=== PATIENT | female | born 1980 | race Caucasian/White ===

== ENCOUNTER 2017-03-23 20:45 | Emergency (ER) | payer MEDICAID, OTHER ==
[~2017-03-23] VITALS: Ht 157.5 cm; Wt 54.4 kg
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
--- NOTE | 2017-03-23 21:23 | NUR ---
aram hooker at bedside for eval.
[2017-03-23 21:29] LABS: APPEARANCE,URINE Clear (CLEAR); BILIRUBIN,URINE Negative (NEGATIVE); BLOOD, URINE Negative Ery/uL (NEGATIVE); COLOR,URINE Yellow (YELLOW); KETONES,URINE Trace (NEGATIVE); LEUKOCYTE ESTERASE ,URINE Negative (NEGATIVE); NITRITE, URINE Negative (NEGATIVE); PH,URINE 5.5 (5.0-8.0); PROTEIN,URINE Negative (NEGATIVE); UGLUCOSE Negative (NEGATIVE); UROBILINOGEN,URINE 0.2 EU/dL (0.2)
[2017-03-23] MEDS ORDERED: IV NS 0.9% 1,000 ML BAG IV ONE (21:30)
--- NOTE | 2017-03-23 21:30 | NUR ---
iv line started blood drawn and sent to lab.
[2017-03-23] MEDS ORDERED: IV SET PRIMARY 1 EA INFUS.SET MC ONE (21:34)
[2017-03-23 21:35] LABS: BASOPHILS # (AUTO) 0.1 /CMM (0.0-0.2); BASOPHILS % (AUTO) 1.6 % (0.0-2.0); EOSINOPHILS # (AUTO) 0.1 /CMM (0.0-0.7); EOSINOPHILS % (AUTO) 1.3 % (0.0-6.0); HEMATOCRIT 38 % (33-45); HEMOGLOBIN 12.7 g/dL (11.5-14.8); LYMPHOCYTES % (AUTO) 29.6 % (20.0-44.0); MEAN CORPUSCULAR HEMOGLOBIN 34 PG (26.0-33.0); MEAN CORPUSCULAR HGB CONC 34 g/dl (31.0-36.0); MEAN CORPUSCULAR VOLUME 101 fL (82-100); MONOCYTES # (AUTO) 0.6 /CMM (0.1-1.30); MONOCYTES % (AUTO) 9.4 % (2.0-12.0); NEUTROPHILS # (AUTO) 3.8 /CMM (1.8-8.9); NEUTROPHILS % (AUTO) 58.1 % (43.0-81.0); PLATELET COUNT (AUTO) 226 /CMM (150-450); RDW COEFFICIENT OF VARIATION 15.9 (11.5-15.0); RED BLOOD CELL COUNT(AUTO) 3.75 MIL/uL (4.0-5.2); WHITE BLOOD COUNT (AUTO) 6.6 K/uL (4.3-11.0)
[2017-03-23] MEDS ORDERED: IV NS 0.9% 1,000 ML ONE (21:35)
[2017-03-23 21:44] LABS: BACTERIA,URINE Few /HPF (None Seen); RBC,URINE 0-2 /HPF (0-2); SQUAMOUS EPITHELIAL CELL,UR Few /HPF (None Seen); WBC,URINE 0-2 /HPF (0-3)
[2017-03-23 22:36] LABS: CALCIUM, SERUM 6.9 mg/dL (8.5-10.1); CREATININE 0.7 mg/dL (0.6-1.3); POTASSIUM 3.7 mmol/L (3.5-5.1)
[2017-03-23 22:45] LABS: BILIRUBIN,TOTAL 0.1 mg/dL (0.2-1.0); SALICYLATE 1.5 mg/dL (2.8-20.0); TOTAL PROTEIN, SERUM 5.8 g/dL (6.4-8.2)
--- NOTE | 2017-03-23 23:19 | NUR ---
RECEIVED CALL FROM MOTHER, SILVIA LONG, , SAID PT IS HOMELESS AND DESPERATELY WANTS TO GET INTO A DETOX CENTER AND SUFFERS FROM PTSD. WANTS A NEUROLOGY SPECIALIST OR SOMEONE TO SEE PT AND HELP HER GET INTO A DETOX CENTER.
--- NOTE | 2017-03-23 23:51 | NUR ---
JESSICA LAM, FRIEND OF PT,
--- NOTE | 2017-03-24 00:10 | NUR ---
pt sleeping. arousable. on monitor w/ stable vitals. will continue to monitior.
--- NOTE | 2017-03-24 01:35 | NUR ---
report to charge nurse brennan for elsa.
--- NOTE | 2017-03-24 08:54 | NUR ---
Called Maude, patient's friend, ETA=5 minutes.
[2017-03-24 09:10] VITALS: BP 114/67
--- NOTE | 2017-03-24 09:10 | NUR ---
Patient discharged to home in stable condition. Written and verbal after care instructions given. Patient verbalizes understanding of instruction. pt leaving with friend via private car. no further complaints. resources given to patient.
== END 2017-03-24 09:10 | disposition home or self-care (01) ==
LOC: ER 20:48
DX: F10.229 Alcohol dependence with intoxication, unspecified (principal); J45.909 Unspecified asthma, uncomplicated; Z91.040 Latex allergy status
CPT/HCPCS: 36415; 80048-TC; 80076-TC; 80305; 81000-TC; 83690-TC; 85025-TC; A4606; G0480; J7030; Z7610